=== PATIENT | female | born 1975 | race Caucasian/White ===

== ENCOUNTER 2020-10-15 03:37 | Emergency (ER) | payer MEDICAID, SELFPAY ==
[~2020-10-15] VITALS: Ht 152.4 cm; Wt 83.6 kg
[2020-10-15] MEDS ORDERED: IBUPROFEN 800 MG TABLET PO ONE (04:30)
[2020-10-15 05:51] VITALS: BP 122/64
== END 2020-10-15 06:03 | disposition home or self-care (01) ==
LOC: EMS 03:37
DX: S40.011A Contusion of right shoulder, initial encounter (principal); W19.XXXA Unspecified fall, initial encounter; Y93.89 Activity, other specified; Y92.89 Other specified places as the place of occurrence of the external cause; Y99.8 Other external cause status
CPT/HCPCS: 99283